=== PATIENT | male | born 1970 | race Caucasian/White ===

== ENCOUNTER 2017-01-07 10:12 | Inpatient (IN) | payer SELFPAY ==
[~2017-01-07] VITALS: Ht 175.3 cm; Wt 88.5 kg
[2017-01-07] MEDS ORDERED: SODIUM CHLORIDE 0.9% 1,000 ML IV ONE (10:39)
[2017-01-07] MEDS ORDERED: ONDANSETRON HCL 4MG/2ML VIAL IV STA (10:39)
[2017-01-07] MEDS ORDERED: FAMOTIDINE 20MG/2ML VIAL IV STA (10:39)
[2017-01-07] MEDS ORDERED: MORPHINE SULFATE 4 MG/ML CPJ (NOT FOR IM USE) IV STA (10:39)
[2017-01-07 11:22] LABS: BASOPHILS % 0.4 % (0.0-2.0); EOSINOPHILS % 0.3 % (0.0-5.0); HEMOGLOBIN. 13.2 g/dL (14.0-18.0); LYMPHOCYTES % 12.2 % (20.0-50.0); MEAN CORPUSCULAR HEMOGLOBIN 26.5 pg (28.0-32.0); MEAN PLATELET VOLUME 9.2 fl (7.4-10.4); MONOCYTES % 5.9 % (2.0-8.0); NEUTROPHILS % 81.2 % (40.0-76.0); PLATELET 202 x1000/uL (130-400); RED CELL DISTRIBUTION WIDTH 15.3 % (11.6-14.6)
[2017-01-07 11:32] LABS: INR 1.1; PARTIAL THROMBOPLASTIN TIME 28.7 sec (24.0-34.0); PROTHROMBIN TIME 11.1 sec
[2017-01-07 11:33] LABS: CARBON DIOXIDE 28 mEq/L (21-32); CHLORIDE 103 mEq/L (98-107)
[2017-01-07 11:40] LABS: TROPONIN I < 0.02 ng/mL (0.00-0.04)
[2017-01-07] MEDS ORDERED: GUAIFENESIN 200MG/10ML SUGAR FREE UDC PO PRN (12:30)
[2017-01-07] MEDS ORDERED: ACETAMINOPHEN 325MG TABLET PO PRN (12:30)
[2017-01-07] MEDS ORDERED: CLONIDINE 0.1MG TABLET PO PRN (12:30)
[2017-01-07] MEDS ORDERED: NA PHOS,M-B/NA PHOS,DI-BA ENEMA 118ML PR PRN (12:30)
[2017-01-07] MEDS ORDERED: IPRATROPIUM/ALBUTEROL 0.5-3(2.5)MG/3ML NEB INH PRN (12:30)
[2017-01-07] MEDS ORDERED: DIPHENHYDRAMINE 50MG/ML VIAL IV PRN (12:30)
[2017-01-07] MEDS ORDERED: DOCUSATE SODIUM 100MG CAPSULE PO PRN (12:30)
[2017-01-07] MEDS ORDERED: MAGNESIUM/ALUMINUM HYDROXIDE/SIMETHICONE 30ML UDC PO PRN (12:30)
[2017-01-07] MEDS ORDERED: LORAZEPAM 2MG/ML CPJ IV PRN (12:30)
[2017-01-07] MEDS ORDERED: ONDANSETRON HCL 4MG/2ML VIAL IV PRN (12:30)
[2017-01-07] MEDS ORDERED: MORPHINE SULFATE 4 MG/ML CPJ (NOT FOR IM USE) IV ONE (13:00)
[2017-01-07] MEDS ORDERED: ONDANSETRON HCL 4MG/2ML VIAL IV ONE (13:00)
[2017-01-07] MEDS ORDERED: PANTOPRAZOLE SODIUM 40 MG/VIAL IV ONE (13:00)
[2017-01-07 16:49] VITALS: BP 150/99
[2017-01-07] MEDS ORDERED: SIMETHICONE 80MG TABLET CHEW PO PRN (18:15)
[2017-01-07] MEDS: HYDROCODONE/ACETAMINOPHEN 5/325MG TABLET PO PRN (18:25)
[2017-01-07] MEDS: SODIUM CHLORIDE 0.45% 1,000 ML IV SCH (19:35)
[2017-01-07 20:00] VITALS: BP 127/88
[2017-01-07] MEDS ORDERED: ZOLPIDEM TARTRATE 5MG TABLET PO PRN (22:00)
[2017-01-08] VITALS: BP 140/98
[2017-01-08] MEDS: HYDROCODONE/ACETAMINOPHEN 5/325MG TABLET PO PRN (00:25)
[2017-01-08 04:00] VITALS: BP 101/52
[2017-01-08] MEDS: SODIUM CHLORIDE 0.45% 1,000 ML IV SCH (06:45)
[2017-01-08 06:53] LABS: BASOPHILS % 0.5 % (0.0-2.0); EOSINOPHILS % 1.6 % (0.0-5.0); HEMATOCRIT. 38.4 % (42.0-52.0); HEMOGLOBIN. 12.5 g/dL (14.0-18.0); LYMPHOCYTES % 27.1 % (20.0-50.0); MEAN CORPUSCULAR HEMOGLOBIN 26.6 pg (28.0-32.0); MEAN CORPUSCULAR VOLUME 81.9 fL (80.0-94.0); MONOCYTES % 7.4 % (2.0-8.0); NEUTROPHILS % 63.4 % (40.0-76.0); PLATELET 199 x1000/uL (130-400); RED CELL DISTRIBUTION WIDTH 15.2 % (11.6-14.6)
[2017-01-08 07:39] LABS: CARBON DIOXIDE 29 mEq/L (21-32); CHLORIDE 104 mEq/L (98-107); HDL CHOLESTEROL 39 mg/dL (40-59); LDL CHOLESTEROL 96 mg/dL (5-100)
== END 2017-01-08 08:00 | disposition left against medical advice (07) | DRG 241 ==
LOC: ER 10:59 → EDBEDREQ 12:24 → ENRESERV 16:00 → CANRESERV 16:00 → ENRESERV 16:13 → 6EST 17:44
PROVIDERS: ADMIT Internal Medicine; ATTEND Internal Medicine
DX: K29.70 Gastritis, unspecified, without bleeding (principal); K92.0 Hematemesis; K56.7 Ileus, unspecified; I10 Essential (primary) hypertension; F12.90 Cannabis use, unspecified, uncomplicated; K21.9 Gastro-esophageal reflux disease without esophagitis; A05.9 Bacterial foodborne intoxication, unspecified; E86.0 Dehydration; Z53.21 Procedure and treatment not carried out due to patient leaving prior to being seen by health care provider; Z87.891 Personal history of nicotine dependence
CPT/HCPCS: 36415; 74022; 80053; 80061; 83690; 84484; 85025; 85610; 85730; 86850; 86900; 93005; 96361; 96374; 96375; 96376; 99285; C9113; J2270; J2405; J3490; J7030